=== PATIENT | male | born 1955 | race Caucasian/White ===

== ENCOUNTER 2021-02-03 14:35 | Emergency (ER) | payer BC ==
[~2021-02-03] VITALS: Ht 175.3 cm; Wt 83.9 kg
[2021-02-03] MEDS ORDERED: LIPITOR (14:48)
[2021-02-03] MEDS ORDERED: TAMS-3 PO (14:48)
[2021-02-03] MEDS ORDERED: DIAZ5TAB4 PO (14:48)
--- NOTE | 2021-02-03 14:50 | NUR ---
Received report from bellows charger assembler. Patient ambulatory cane gain gait steady to ED room 4. Able to gown self. States 2 day of back ,neck pain of 10 / 10 after mechanical ground level fall." Kim taken every OTC pain reliever still severe pain."Well dressed,able to undress, gown self. A,A,oriented x4.Reports BM this am nl. smaller than usual, HX prostate problems, void is normal.Drove self to ED. Comfort measures offered declined by pt.
[2021-02-03] MEDS ORDERED: GADOTERATE MEGLUMINE 5 MMOL/10 ML VIAL IV ONE (14:59)
--- NOTE | 2021-02-03 15:34 | NUR ---
Patient to CT via gurney.
--- NOTE | 2021-02-03 15:43 | NUR ---
Return from CT via gurdanny, tolerated fair. Comfort measures x 1cool compress,HOB semi fowlers.
--- NOTE | 2021-02-03 15:58 | NUR ---
Radiology department notifed about MRI, they stated they will make the arrangements and call back.
--- NOTE | 2021-02-03 16:12 | NUR ---
TEXTED DR. GAMBOA FOR MRI APPROVAL.
[2021-02-03 16:15] LABS: HEMATOCRIT 48.2 % (36.7-47.1); MEAN CORPUSCULAR HEMOGLOBIN 30.7 uug (23.8-33.4); MEAN CORPUSCULAR VOLUME 90.8 fL (73.0-96.2); PLATELET COUNT (AUTO) 220 K/uL (152-348)
[2021-02-03 16:24] LABS: CREATININE 1.1 mg/dL (0.6-1.3); POTASSIUM 4.8 mmol/L (3.5-5.1)
--- NOTE | 2021-02-03 16:25 | NUR ---
Spoke with Gurmeet ([phone]) from [facility] radiology dept for MRI. Per Gurmeet pt is scheduled for MRI at 1800. Called [facility] for round trip transport, eta for warehouse order picker [phone].
--- NOTE | 2021-02-03 17:22 | NUR ---
Cervical collar applied as directed by ,tolerated well.Void clear yellow urine x 2each 300 cc. Urine to lab. Corected patient name with cereal supervisor. Contrast questionnaire ,consent for MRI completed with patient,informed ambulance transfer to [facility] for MRI with return to [place] when completed. VS stable.
--- NOTE | 2021-02-03 17:27 | NUR ---
Late entry # 20 angiocath SL RAC x 1 tolerated well,dressing dry ,intact 1600.
--- NOTE | 2021-02-03 17:30 | NUR ---
Corrected name band applied.
[2021-02-03] MEDS ORDERED: HYDROMORPHONE 1 MG/1 ML DISP.SYRIN IV ONE ×3 (17:45→22:45)
[2021-02-03] MEDS ORDERED: ONDANSETRON 4 MG/2 ML VIAL IV ONE ×2 (18:15→21:45)
[2021-02-03] MEDS ORDERED: HYDROMORPHONE 1 MG/1 ML DISP.SYRIN ONE ×3 (18:18→22:51)
[2021-02-03] MEDS ORDERED: ONDANSETRON 4 MG/2 ML VIAL ONE ×2 (18:19→21:51)
--- NOTE | 2021-02-03 18:25 | NUR ---
Prepared for transport [facility] 265 unit run number [id number] report given,instructed patient MRI imaging then return with patient. Medicated for comfort. All personel belongings with patient.
--- NOTE | 2021-02-03 19:10 | NUR ---
Received report from barrett Orona RN.
--- NOTE | 2021-02-03 21:20 | NUR ---
PT RETURNED FROM MRI, STABLE CONDITION.
[2021-02-03] MEDS ORDERED: IV D5W-0.45% NS 1000 ML BAG IV ONE (22:45)
--- NOTE | 2021-02-03 23:00 | NUR ---
Called [facility], f/u with MRI dictation.
[2021-02-04] MEDS ORDERED: DEXAMETHASONE SOD PHOSPHATE 4 MG INJ IV ONE
[2021-02-04] MEDS ORDERED: DEXAMETHASONE SOD PHOSPHATE 4 MG INJ ONE (00:16)
--- NOTE | 2021-02-04 01:13 | NUR ---
Patient is resting comfortably in bed with eyes closed.
--- NOTE | 2021-02-04 02:21 | NUR ---
Antonio from [facility] call who states they will accept patient. Antonio requesting facesheet and summary report to be faxed to .
[2021-02-04] MEDS ORDERED: HYDROMORPHONE 1 MG/1 ML DISP.SYRIN ONE (03:26)
[2021-02-04] MEDS ORDERED: ONDANSETRON 4 MG/2 ML VIAL ONE (03:26)
[2021-02-04] MEDS ORDERED: ONDANSETRON 4 MG/2 ML VIAL IV ONE (03:30)
[2021-02-04] MEDS ORDERED: HYDROMORPHONE 1 MG/1 ML DISP.SYRIN IV ONE (03:30)
--- NOTE | 2021-02-04 03:46 | NUR ---
Pt able to use urinal, clear yellow output, no foul odor noted.
--- NOTE | 2021-02-04 04:24 | NUR ---
Receieved call from Antonio ([facility]), pt going to room 1223 Bed 1, report number is [phone]. [facility] ETA to picking machine operator helper pt is [phone].
--- NOTE | 2021-02-04 04:38 | NUR ---
Gave report Elyse from [facility].
--- NOTE | 2021-02-04 05:15 | NUR ---
[facility] at bedside to picking machine operator helper pt for transportation to [facility], [address].
--- NOTE | 2021-02-04 05:30 | NUR ---
Patient Tranfers to outside Facility Physician: Dr. Conti Location: [facility] room 1223 Bed 1 vitals stable, denies any pain/discomfort prior to transfer. A/O x4, no SOB or labored breathing, afebrile.
== END 2021-02-04 05:30 | disposition short-term general hospital (02) ==
LOC: ER 14:58
DX: S13.151A Dislocation of C4/C5 cervical vertebrae, initial encounter (principal); S14.154A Other incomplete lesion at C4 level of cervical spinal cord, initial encounter; W18.2XXA Fall in (into) shower or empty bathtub, initial encounter; Y93.E1 Activity, personal bathing and showering; Y92.031 Bathroom in apartment as the place of occurrence of the external cause; Z82.49 Family history of ischemic heart disease and other diseases of the circulatory system; M48.02 Spinal stenosis, cervical region; M25.78 Osteophyte, vertebrae; E78.5 Hyperlipidemia, unspecified; N40.0 Benign prostatic hyperplasia without lower urinary tract symptoms; F41.9 Anxiety disorder, unspecified; Z79.899 Other long term (current) drug therapy
CPT/HCPCS: 36415; 70030-TC; 70450; 71045; 72125; 72158; 85025; 93005; A9575; J1100; J1170; J2405; J7042